=== PATIENT | male | born 1935 | race Asian ===

== ENCOUNTER 2018-10-07 14:01 | Emergency (ER) | payer MEDICARE, BC ==
[2018-10-07 14:21] VITALS: BP 178/104
--- NOTE | 2018-10-07 14:30 | UC ---
Shortness of Breath HPI - History of Current Complaint Chief Complaint: UCRespiratory Stated Complaint: SOB Time Seen by Provider: 10/07/18 14:30 - Allergy/Home Medications Allergies/Adverse Reactions: Allergies Allergy/AdvReac Type Severity Reaction Status Date / Time tamsulosin Allergy Severe Dizziness Verified 10/07/18 14:24 fenofibrate Allergy Dizziness Verified 10/07/18 14:24 PMH/Surg Hx/FS Hx/Imm Hx Other History Of: Anticoagulant Therapy - Surgical History Surgical History: Yes Surgery Procedure, Year, and Place: DETACHED RETINA SURGERY ON RIGHT EYE. RIGHT KNEE SURGERY. PROSTATE SURGERY 2016. cardiac stents 2018 - Family History Known Family History: Positive: Hypertension - Mother - Social History Alcohol Use: Occasionally Substance Use Type: None Smoking Status (MU): Never Smoked Tobacco - Immunization History Most Recent Influenza Vaccination: 2012 Most Recent Tetanus Shot: 2013 Most Recent Pneumonia Vaccination: Up to date Physical Exam Vital Signs: Initial Vital Signs Temp 98.0 F 10/07/18 14:17 Pulse 63 10/07/18 14:17 Resp 20 10/07/18 14:17 BP 178/104 10/07/18 14:17 Pulse Ox 100 10/07/18 14:17 Discharge - Discharge Plan Referrals: Faizan Villa MD [Primary Care Provider] -
--- NOTE | 2018-10-07 15:47 | UC ---
Shortness of Breath HPI - HPI Summary HPI Summary: 83-year-old male comes in with chief complaint of shortness breath. This shortness of breath this going on for months. Been worse over the last month. He did have some chest tightness associated with the shortness of breath and had a cardiac catheterization with a stent placement about 2 weeks ago at [facility]. Patient reports the chest tightness is gone at this shortness of breath remains. Shortness of breath is worse with laying down and activity. He does have some pedal edema. No fevers or chills no sputum production. - History of Current Complaint Chief Complaint: UCRespiratory Stated Complaint: SOB Time Seen by Provider: 10/07/18 14:30 - Allergy/Home Medications Allergies/Adverse Reactions: Allergies Allergy/AdvReac Type Severity Reaction Status Date / Time tamsulosin Allergy Severe Dizziness Verified 10/07/18 14:24 fenofibrate Allergy Dizziness Verified 10/07/18 14:24 Home Medications: Home Medications Furosemide [Lasix] 40 mg PO DAILY WITH MEAL 10/07/18 [History Confirmed 10/07/18 ] Ticagrelor* [Brilinta*] 90 mg PO BID 10/07/18 [History Confirmed 10/07/18] PMH/Surg Hx/FS Hx/Imm Hx Endocrine History: Diabetes Cardiovascular History: Hypertension Other Cardiovascular History: RENAL INSUFFICIENCY Other History Of: Anticoagulant Therapy - Surgical History Surgical History: Yes Surgery Procedure, Year, and Place: DETACHED RETINA SURGERY ON RIGHT EYE. RIGHT KNEE SURGERY. PROSTATE SURGERY 2016. cardiac stents 2018 - Family History Known Family History: Positive: Hypertension - Mother - Social History Alcohol Use: Occasionally Substance Use Type: None Smoking Status (MU): Never Smoked Tobacco - Immunization History Most Recent Influenza Vaccination: 2013 Most Recent Tetanus Shot: 2014 Most Recent Pneumonia Vaccination: Up to date Review of Systems All Other Systems Reviewed And Are Negative: Yes Constitutional: Positive: Negative Skin: Positive: Negative Eyes: Positive: Negative ENT: Positive: Negative Respiratory: Positive: Shortness Of Breath. Negative: Cough Cardiovascular: Negative: Chest Pain Gastrointestinal: Positive: Negative Genitourinary: Positive: Negative Motor: Positive: Negative Neurovascular: Positive: Negative Musculoskeletal: Positive: Negative Neurological: Positive: Negative Psychological: Positive: Negative Is Patient Immunocompromised?: No Physical Exam Triage Information Reviewed: Yes Appearance: Well-Appearing, No Pain Distress, Well-Nourished Vital Signs: Initial Vital Signs Temp 98.0 F 10/07/18 14:17 Pulse 63 10/07/18 14:17 Resp 20 10/07/18 14:17 BP 178/104 10/07/18 14:17 Pulse Ox 100 10/07/18 14:17 Vital Signs Reviewed: Yes Eye Exam: Normal Eyes: Positive: Conjunctiva Clear Neck exam: Normal Neck: Positive: Supple Respiratory: Positive: Lungs clear, Normal breath sounds, No respiratory distress Cardiovascular: Positive: RRR Abdomen Description: Positive: Nontender, Soft Bowel Sounds: Positive: Present Musculoskeletal: Positive: Strength Intact, ROM Intact, Other: - Trace bilateral pedal edema Neurological Exam: Normal Neurological: Positive: Alert, Muscle Tone Normal Psychological Exam: Normal Psychological: Positive: Age Appropriate Behavior Skin Exam: Normal Diagnostics - EKG Cardiac Rate: NL - AT 14:35 Cardiac Rhythm: Sinus: Normal - APPROX 65 BPM, LBBB: New Ectopy: None EKG Comparison: Other - LBBB NEW IN COMPARISON TO OUR LAST EKG OF 09/14/16 Shortness of Breath Dx - Course Course Of Treatment: Patient's EKG shows a new left bundle branch block in comparison to her last EKG of September 14, 2016. Patient has no chest pain at this time. Shortness breath is worse with laying down and activity. Congestive heart failure and pericarditis are possibilities. Chest x-ray results were discussed with the patient as were the EKG results. No CHF or other abnormality seen on chest x-ray. I discussed with the patient that I recommended he come to the emergency department for further evaluation to include blood work to evaluate for heart damage and potentially observation overnight and echocardiogram if needed. Patient declined going to the emergency department. We discussed going to [facility] emergency department and also [facility] emergency department where most of his records are. Patient declined going to the emergency department and plans to follow-up his primary care doctor tomorrow. We david blood work for CBC CMP TSH INR and BNP. I let him know that if he gets short of breath or has any chest pain or if he feels worse before he sees primary care doctor he needs to go to the emergency department. - Differential Dx/Diagnosis Provider Diagnosis: Dyspnea Discharge - Sign-Out/Discharge Documenting (check all that apply): Patient Departure All imaging exams completed and their final reports reviewed: Yes - Discharge Plan Condition: Stable Disposition: HOME-RECOMMEND TO ED Patient Education Materials: Dyspnea (ED) Referrals: Faizan Villa MD [Primary Care Provider] - Additional Instructions: FOLLOW UP WITH YOUR DOCTOR TOMORROW, 10/08/18. GO TO THE EMERGENCY DEPARTMENT FOR ANY WORSENING OF YOUR CONDITION; CHEST PAIN, SHORTNESS OF BREATH, YOU FEEL ILL OR QUESTIONS OR CONCERNS. - Billing Disposition and Condition Condition: STABLE Disposition: Home-Recommend to ED
[2018-10-07 19:04] LABS: ABS Basophils 0 10^3/ul (0-0.2); ABS Eosinophils 0.1 10^3/ul (0-0.6); ABS Lymphocytes 1.8 10^3/ul (1.0-4.8); ABS Monocytes 0.5 10^3/ul (0-0.8); ABS Neutrophils 9.1 10^3/ul (1.5-7.7); ABS Nucleated RBC 0 10^3/ul; Eosinophil % 1.1 %; Hematocrit 44 % (42-52); Hemoglobin 15.3 g/dl (14.0-18.0); Lymphocyte % 15.5 %; Mean Corpuscular HGB Conc 35 g/dl (31-36); Mean Corpuscular Hemoglobin 30 pg (27-31); Mean Corpuscular Volume 86 fL (80-94); Mean Platelet Volume 9.1 fL (7.4-10.4); Nucleated Red Blood Cells % 0.1; Platelet Count 257 10^3/ul (150-450); Red Blood Count 5.16 10^6/ul (4.00-5.40); Red Cell Distribution Width 14 % (10.5-15); White Blood Count 11.6 10^3/ul (3.5-10.8)
[2018-10-07 19:11] LABS: INR 0.9 (0.77-1.02)
[2018-10-07 19:21] LABS: EGFR Non-African American 49.9 (>60)
--- NOTE | 2018-10-08 13:05 | UC ---
- Progress Note Progress Note: PLEASE CALL PATIENT. BLOOD WORK SHOWS SLIGHTLY ELEVATED WHITE BLOOD CELLS. SLIGHTLY DECREASED KIDNEY FUNCTION. ELEVATED BNP SUGGESTING POSSIBLE HEART FAILURE. TSH IS SLIGHTLY ELEVATED SUGGESTING POSSIBLE HYPOTHYROIDISM. WOULD RECOMMEND ED EVALUATION IF PATIENT IS NOT FEELING ANY BETTER. CERTAINLY AT LEAST NEEDS PCP FOLLOW-UP FOR ABNORMAL LABS. - ELIESER WHITE MD Course/Dx - Diagnoses Provider Diagnoses: Dyspnea Discharge - Sign-Out/Discharge Documenting (check all that apply): Post-Discharge Follow Up All imaging exams completed and their final reports reviewed: Yes - Discharge Plan Condition: Stable Disposition: HOME-RECOMMEND TO ED Patient Education Materials: Dyspnea (ED) Referrals: Faizan Villa MD [Primary Care Provider] - Additional Instructions: FOLLOW UP WITH YOUR DOCTOR TOMORROW, 10/08/18. GO TO THE EMERGENCY DEPARTMENT FOR ANY WORSENING OF YOUR CONDITION; CHEST PAIN, SHORTNESS OF BREATH, YOU FEEL ILL OR QUESTIONS OR CONCERNS. - Billing Disposition and Condition Condition: STABLE Disposition: Home-Recommend to ED
== END 2018-10-07 16:34 | disposition home health service (06) ==
LOC: UCEAST 14:01
DX: R06.00 Dyspnea, unspecified (principal); Z88.8 Allergy status to other drugs, medicaments and biological substances; E11.9 Type 2 diabetes mellitus without complications; I10 Essential (primary) hypertension
CPT/HCPCS: 36415; 71046; 80053; 83880; 84443; 85025; 85610; 93005; 99211; G0463

== ENCOUNTER 2018-10-10 14:58 | Emergency (ER) | payer MEDICARE, BC ==
[2018-10-10 15:22] VITALS: BP 179/91
--- NOTE | 2018-10-10 16:11 | UC ---
Shortness of Breath HPI - HPI Summary HPI Summary: 83-year-old male comes to clinic today with a chief complaint of shortness of breath. His breath been going on for quite a long time perhaps even months. He 's had a cardiac some tenting in the last few weeks with the hope that that would help shortness of breath and has not. Shortness breath is worse when he is laying down or sitting down. he reports some rhinorrhea which is yellow. Seen here on October 07, 2018. Lab work including a CBC CMP TSH and BNP were done at that time. Also an EKG and chest x-ray was done then. Chest x-ray was NAD EKG had no changes from prior EKGs. Lab work showed a white cell count slightly elevated at 11.6 thousand. Red and slightly elevated at 1.36. BNP 737. A TSH of 7.63. This information was communicated with the patient after his last visit. The patient has seen his primary care doctor in the meantime. His primary care doctor started him on additional diuretic. And plans to have blood work drawn tomorrow October 11, 2018 and following up with him next week in the first week of October 2018. Patient has no complaint of chest pain. He's had some pedal edema. No calf pain or unilateral calf swelling. No fevers or chills. - History of Current Complaint Chief Complaint: UCCardiac Stated Complaint: SHORTNESS OF BREATH Time Seen by Provider: 10/10/18 15:12 - Allergy/Home Medications Allergies/Adverse Reactions: Allergies Allergy/AdvReac Type Severity Reaction Status Date / Time tamsulosin Allergy Severe Dizziness Verified 10/10/18 15:23 cyclobenzaprine Allergy See Comment Verified 10/10/18 15:39 fenofibrate Allergy Dizziness Verified 10/10/18 15:23 naproxen Allergy See Comment Verified 10/10/18 15:39 Home Medications: Home Medications Aspirin [Adult Aspirin Regimen] 81 mg PO DAILY 10/10/18 [History Confirmed 10/10] Fexofenadine (NF) [Kiley 180 (NF)] 180 mg PO DAILY 10/10/18 [History Confirmed 10/10/18] Multivitamin [Multivitamins] 1 cap PO DAILY 10/10/18 [History Confirmed 10/10/18 ] PMH/Surg Hx/FS Hx/Imm Hx Cardiovascular History: Cardiac Disease, Hypertension, Congestive Heart Failure Other History Of: Anticoagulant Therapy - Surgical History Surgical History: Yes Surgery Procedure, Year, and Place: DETACHED RETINA SURGERY ON RIGHT EYE. RIGHT KNEE SURGERY. PROSTATE SURGERY 2016. cardiac stents 2018 - Family History Known Family History: Positive: Hypertension - Mother - Social History Alcohol Use: Occasionally Substance Use Type: None Smoking Status (MU): Never Smoked Tobacco - Immunization History Most Recent Influenza Vaccination: 2012 Most Recent Tetanus Shot: 2013 Most Recent Pneumonia Vaccination: Up to date Review of Systems All Other Systems Reviewed And Are Negative: Yes Constitutional: Positive: Negative Skin: Positive: Negative Eyes: Positive: Negative ENT: Positive: Nasal Discharge, Sinus Congestion Respiratory: Positive: Shortness Of Breath Cardiovascular: Positive: Negative Gastrointestinal: Positive: Negative Genitourinary: Positive: Negative. Negative: Dysuria, Frequency, Urgency Motor: Positive: Negative Neurovascular: Positive: Negative Musculoskeletal: Positive: Edema Neurological: Positive: Negative Psychological: Positive: Negative Is Patient Immunocompromised?: No Physical Exam Triage Information Reviewed: Yes Appearance: Well-Appearing, No Pain Distress, Well-Nourished Vital Signs: Initial Vital Signs Temp 97.9 F 10/10/18 15:19 Pulse 69 10/10/18 15:19 Resp 18 10/10/18 15:19 BP 179/91 10/10/18 15:19 Pulse Ox 100 10/10/18 15:19 Eye Exam: Normal Eyes: Positive: Conjunctiva Clear ENT Exam: Normal ENT: Positive: Pharynx normal Neck exam: Normal Neck: Positive: Supple Respiratory: Positive: Lungs clear, Normal breath sounds, No respiratory distress Cardiovascular: Positive: RRR Musculoskeletal Exam: Normal Musculoskeletal: Positive: Strength Intact, ROM Intact, Edema @ - TRACE B/L, Other: - NO CALF TENDERNESS Neurological Exam: Normal Neurological: Positive: Alert, Muscle Tone Normal Psychological Exam: Normal Psychological: Positive: Normal Response To Family, Age Appropriate Behavior Skin Exam: Normal Shortness of Breath Dx - Differential Dx/Diagnosis Provider Diagnosis: Dyspnea, Sinusitis Discharge - Sign-Out/Discharge Documenting (check all that apply): Patient Departure All imaging exams completed and their final reports reviewed: No Studies - Discharge Plan Condition: Stable Disposition: HOME Prescriptions: Amoxicillin/Clavulanate TAB* [Augmentin TAB 875*] 875 mg PO BID #20 tab Fluticasone NASAL SPRAY 50MCG* [Flonase NASAL SPRAY 50MCG*] 2 spray BOTH NARES DAILY #1 btl Patient Education Materials: Dyspnea (ED), Sinusitis (ED) Referrals: Faizan Villa MD [Primary Care Provider] - Additional Instructions: FOLLOW UP WITH YOUR DOCTOR SCHEDULED. GO TO THE EMERGENCY DEPARTMENT FOR ANY WORSENING OF YOUR CONDITION: CHEST PAIN, SHORTNESS OF BREATH, YOU FEEL ILL OR QUESTIONS OR CONCERNS. - Billing Disposition and Condition Condition: STABLE Disposition: Home
== END 2018-10-10 16:40 | disposition home or self-care (01) ==
LOC: UCEAST 14:58
DX: R06.00 Dyspnea, unspecified (principal); J32.9 Chronic sinusitis, unspecified; R00.1 Bradycardia, unspecified; I25.10 Atherosclerotic heart disease of native coronary artery without angina pectoris; I11.0 Hypertensive heart disease with heart failure; Z95.5 Presence of coronary angioplasty implant and graft; Z79.82 Long term (current) use of aspirin; Z88.6 Allergy status to analgesic agent; Z88.8 Allergy status to other drugs, medicaments and biological substances
CPT/HCPCS: 93005; 99212; G0463

== ENCOUNTER 2019-04-20 23:46 | Observation (INO) | payer MEDICARE, BC ==
[2019-04-21] MEDS ORDERED: Ondansetron INJ* 2 MG/ML VIAL IV ONE (00:11)
[2019-04-21] MEDS ORDERED: Morphine 4 MG/ML VIAL (1 ml) 4 MG/ML VIAL IV ONE ×2 (00:11→00:27)
--- NOTE | 2019-04-21 00:11 | ED ---
HPI Chest Pain - HPI Summary HPI Summary: Patient is a 83 y/o M presenting to ED via EMS with complaints of substernal chest pain. Chest pain onset around two hours ago. Pain is described as a pressure. He denies any other Sx, denies SOB. He reports no radiation of pain. He reports a similar episode two days ago that resolved after taking nitro. Today, patient took nitro with no relief in Sx. PMHx of diabetes, CAD, HLD, HTN , sleep apnea, Crohns, GERD. PSHx of cardiac stents 2018. FMHx of HTN. Occasional alcohol usage, never smoked tobacco, and no substance usage is reported. Patient takes Plavix, 75 mg, and ASA. On triage, pain is rated 7/10. Nothing is noted to aggravate/alleviate Sx. Home medications and allergies are reviewed. - History of Current Complaint Hx Obtained From: Patient Onset/Duration: Started Hours Ago - two hours ago today., Still Present Timing: Constant, Lasting Hours - two hours ago today. Current Severity: Severe Pain Intensity: 7 Pain Scale Used: 0-10 Numeric - 7/10 Chest Pain Radiates: No Character: Pressure/Squeezing Aggravating Factor(s): Nothing Alleviating Factor(s): Nothing Associated Signs and Symptoms: Positive: Chest Pain. Negative: Shortness of Breath - Additional Pertinent History Primary Care Physician: [id number] - Allergy/Home Medications Allergies/Adverse Reactions: Allergies Allergy/AdvReac Type Severity Reaction Status Date / Time tamsulosin Allergy Severe Dizziness Verified 04/21/19 00:59 cyclobenzaprine Allergy See Comment Verified 04/21/19 00:59 fenofibrate Allergy Dizziness Verified 04/21/19 00:59 naproxen Allergy See Comment Verified 04/21/19 00:59 Home Medications: Home Medications Amlodipine Besylate 10 mg PO DAILY 04/21/19 [History Confirmed 04/21/19] Isosorbide Mononitrate ER TAB* [Imdur ER TAB*] 60 mg PO DAILY 04/21/19 [History Confirmed 04/21/19] PMH/Surg Hx/FS Hx/Imm Hx Endocrine/Hematology History: Reports: Hx Anticoagulant Therapy, Hx Diabetes - TYPE 2 Denies: Hx Thyroid Disease Cardiovascular History: Reports: Hx Coronary Artery Disease, Hx Hypercholesterolemia, Hx Hypertension Respiratory History: Reports: Hx Sleep Apnea - new CPAP user, still struggling w /compliance Denies: Hx Asthma, Hx Chronic Obstructive Pulmonary Disease (COPD) GI History: Reports: Hx Crohn's Disease, Hx Gastroesophageal Reflux Disease, Other GI Disorders - colon polyps, internal hemorrhoid Denies: Hx Ulcer History: Reports: Hx Benign Prostatic Hyperplasia, Other Problems/ Disorders - PROSTATE SURGERY 04/2016 Musculoskeletal History: Reports: Hx Arthritis, Other Musculoskeletal History - bilateral knee degenerative joint disease Sensory History: Reports: Hx Cataracts - SURGERY left, Hx Contacts or Glasses, Hx Hearing Aid - BILAT Opthamlomology History: Reports: Hx Cataracts - SURGERY left, Hx Contacts or Glasses Neurological History: Reports: Hx Migraine Denies: Hx CVA, Other Neuro Impairments/Disorders - Surgical History Surgery Procedure, Year, and Place: DETACHED RETINA SURGERY ON RIGHT EYE. RIGHT KNEE SURGERY. PROSTATE SURGERY 2016. cardiac stents 2017 Hx Anesthesia Reactions: No Infectious Disease History: Denies: Hx Hepatitis, Hx Human Immunodeficiency Virus (HIV), Traveled Outside the [place] in Last 30 Days - Family History Known Family History: Positive: Hypertension - Mother - Social History Alcohol Use: Occasionally Hx Substance Use: No Substance Use Type: Reports: None Hx Tobacco Use: No Smoking Status (MU): Never Smoked Tobacco Review of Systems Negative: Fever - on vitals, temp is 97.5 F Positive: Chest Pain Negative: Shortness Of Breath All Other Systems Reviewed And Are Negative: Yes Physical Exam - Summary Physical Exam Summary: VITAL SIGNS: Reviewed. GENERAL: Patient is a well-developed and nourished male who is lying in the stretcher. His skin appears ashy in color. HEAD AND FACE: No signs of trauma. No ecchymosis, hematomas or skull depressions. No sinus tenderness. EYES: PERRLA, EOMI x 2, No injected conjunctiva, no nystagmus. EARS: Hearing grossly intact. Ear canals and tympanic membranes are within normal limits. MOUTH: Oropharynx within normal limits. NECK: Supple, trachea is midline, no adenopathy, no JVD, no carotid bruit, no c- spine tenderness, neck with full ROM CHEST: Symmetric, no tenderness at palpation LUNGS: Rales bilaterally are noted. No wheezing or crackles. CVS: Regular rate and rhythm, S1 and S2 present, no murmurs or gallops appreciated. ABDOMEN: Soft, non-tender. No signs of distention. No rebound no guarding, and no masses palpated. Bowel sounds are normal. EXTREMITIES: FROM in all major joints, no cyanosis or clubbing. 1+ pitting edema bilateral is noted. NEURO: Alert and oriented x 3. No acute neurological deficits. Speech is normal and follows commands. SKIN: Dry and warm Triage Information Reviewed: Yes Vital Signs On Initial Exam: Initial Vitals Temp Pulse Resp BP Pulse Ox 97.5 F 127 27 167/106 94 04/21/19 00:11 04/21/19 00:11 04/21/19 00:11 04/21/19 00:11 04/21/19 00:11 Vital Signs Reviewed: Yes Diagnostics - Laboratory Result Diagrams: 04/21/19 00:21 04/21/19 00:21 Lab Statement: Any lab studies that have been ordered have been reviewed, and results considered in the medical decision making process. - Radiology CXR Radiology Interpretation Completed By: ED Physician Summary of Radiographic Findings: Bilateral interstitial infiltrate consistent with CHF, pending official report. - EKG 2358 Cardiac Rate: Other Rate - afib with rate of 129 BPM EKG Rhythm: Atrial Fibrillation EKG Comparison: Other - upon reviewing EKG done on 10/10/18, LBBB appears to be old. Summary of EKG Findings: EKG showed afib with rate of 129 BPM and LBBB. Upon reviewing EKG done on 10/10/18, LBBB appears to be old. 0028 Cardiac Rate: NL - rate of 85 BPM EKG Rhythm: Sinus Rhythm Summary of EKG Findings: Second EKG showed sinus rhythm with rate of 85 BPM, LBBB. Re-Evaluation - Re-Evaluation First Eval Re-Evaluation Time: 00:27 Change: Unchanged Comment: Patient continues to have pain, second round of morphine ordered with Lasix. Second Eval Re-Evaluation Time: 00:49 Change: Unchanged Comment: Patient continues to have pain, heparin to be given. Third Eval Re-Evaluation Time: 00:53 Change: Unchanged Comment: Aware of trop at this time. Fourth Eval Re-Evaluation Time: 00:59 Change: Unchanged Comment: Nitro past was given to patient. Fifth Eval Re-Evaluation Time: 01:25 Change: Unchanged Comment: Patient reports minimal relief in Sx, third round of morphine to be given. Chest Pain Course/Dx - Course Course Of Treatment: Patient is a 83 y/o M presenting to ED via EMS with complaints of substernal chest pain. Chest pain onset around two hours ago. Pain is described as a pressure. He denies any other Sx, denies SOB. He reports no radiation of pain. He reports a similar episode two days ago that resolved after taking nitro. Today, patient took nitro with no relief in Sx. PMHx of diabetes, CAD, HLD, HTN, sleep apnea, Crohns, GERD. PSHx of cardiac stents 2018. FMHx of HTN. Occasional alcohol usage, never smoked tobacco, and no substance usage is reported. Patient takes Plavix, 75 mg, and ASA. On physical exam, patient's skin is noted to appear ashy is color. Rales bilaterally and 1+ pitting BLE edema are noted. EKG showed afib with rate of 129 BPM and LBBB. Upon reviewing EKG done on 10/10/18, LBBB appears to be old. CXR showed bilateral interstitial infiltrate consistent with CHF. 0024 - Patient's case was discussed with Dr. Villalobos. Dr. Villalobos will call back after reviewing patient 's EKG. During ED course, patient received Zofran 8 mg IV, morphine 4 mg IV x2 , Lopressor 5 mg IV, Lasix 40 mg IV. Second EKG showed sinus rhythm with rate of 85 BPM, LBBB. Patient was started on Heparin 4000 units IV and Heparin drip 56851 units, 1000 mls/hr. Patient still continued to have chest pressure. 0041 - Dr. Villalobos called back. He states that the patient does not meet criteria for STEMI and he does not believe that the patient needs to go to the cardiac photo lab specialist at this time. 0045 - Patient's case was discussed with Dr. Eduardo. He will come to evaluate patient. TROP WAS 0.43. Other labs included WBC 20.1, RBC 5.51, Absolute neuts 17, chloride 100, anion gap 14, creatinine 1.58, glucose 271, total bilirubin 1.10. Patient was given additional 2 mg Morphine IV and 2 inch nitro paste TOPICAL. He also received second Lopressor 5 mg IV, and Lasix 20 mg IV SLOW PU. 0103 - Dr. Eduardo arrived in ED, patient's case was discussed. He will evaluate the patient. 0145 - Dr. Eduardo has discussed the patient's case with Dr. Downs, who has accepted the patient for admission. - Diagnoses Provider Diagnoses: Chest pain, ACS (acute coronary syndrome) - Provider Notifications Discussed Care Of Patient With: Shirin Villalobos Time Discussed With Above Provider: 00:24 Instructed by Provider To: Other - 0024 - Patient's case was discussed with Dr. Villalobos. Dr. Villalobos will call back after reviewing patient's EKG. 0041 - Dr. Villalobos called back. He states that the patient does not meet criteria for STEMI and he does not believe that the patient needs to go to the cardiac photo lab specialist at this time. 0045 - Patient's case was discussed with Dr. Eduardo. He will come to evaluate patient. 0103 - Dr. Eduardo arrived in ED, patient's case was discussed. He will evaluate the patient. - Critical Care Time Critical Care Time: 30-74 min - 45 CCT Discharge - Sign-Out/Discharge Documenting (check all that apply): Patient Departure - admit All imaging exams completed and their final reports reviewed: Yes Patient Received Moderate/Deep Sedation with Procedure: No - Discharge Plan Condition: Fair Disposition: ADMITTED TO [facility] - Attestation Statements Document Initiated by Scribe: Yes Documenting Scribe: BELLA RENEE Provider For Whom Scribe is Documenting (Include Credential): HAMLET MEJIA MD Scribe Attestation: BELLA Ma, scribed for HAMLET MEJIA MD on 04/21/19 at 0219. Status of Scribe Document: Ready
[2019-04-21] MEDS ORDERED: Aspirin 81 mg CHEW TAB* 81 MG TAB.CHEW PO ONE (00:12)
[2019-04-21] MEDS: Metoprolol Tartrate IV* 1 MG/ML 5 ML VIAL IV ONE ×2 (00:25→01:13)
[2019-04-21] MEDS ORDERED: Morphine 4 MG/ML VIAL (1 ml) 4 MG/ML VIAL ONE (00:28)
[2019-04-21] MEDS ORDERED: Furosemide IV* 10 MG/ML VIAL (40 MG) IV SLOW PU ONE (00:29)
[2019-04-21] MEDS ORDERED: Furosemide IV* 10 MG/ML VIAL (40 MG) ONE (00:30)
[2019-04-21 00:31] LABS: ABS Basophils 0.1 10^3/ul (0-0.2); ABS Eosinophils 0.1 10^3/ul (0-0.6); ABS Lymphocytes 2.2 10^3/ul (1.0-4.8); ABS Monocytes 0.7 10^3/ul (0-0.8); Eosinophil % 0.3 %; Hematocrit 49 % (42-52); Hemoglobin 16.3 g/dL (14.0-18.0); Lymphocyte % 10.9 %; Mean Corpuscular HGB Conc 33 g/dL (31-36); Mean Corpuscular Hemoglobin 30 pg (27-31); Mean Corpuscular Volume 88 fL (80-94); Mean Platelet Volume 8.8 fL (7.4-10.4); Nucleated Red Blood Cells % 0.1; Platelet Count 325 10^3/uL (150-450); Red Blood Count 5.51 10^6 /uL (4.18-5.48); Red Cell Distribution Width 14 % (10-15); White Blood Count 20.1 10^3/uL (3.5-10.8)
[2019-04-21] MEDS ORDERED: Heparin for STEMI(*) 5,000 UNITS/ML 1 ML VIAL IV ONE ×2 (00:36→00:39)
[2019-04-21 00:40] LABS: Activated Partial Thrombo Time 34.8 seconds (26.0-38.0); INR 0.98 (0.82-1.09)
[2019-04-21] MEDS ORDERED: Heparin DRIP 25,000 UNITS(*) 25,000 UNITS/500 ML BAG ONE (00:40)
[2019-04-21] MEDS: Heparin DRIP 25,000 UNITS(*) 25,000 UNITS/500 ML BAG IV SCH ×2 (00:47→23:40)
[2019-04-21 00:52] LABS: ALT 16 U/L (7-52); AST 24 U/L (13-39); Albumin 4.1 g/dL (3.2-5.2); Albumin/Globulin Ratio 1.3 (1-3); Alkaline Phosphatase 82 U/L (34-104); Anion Gap 14 mmol/L (2-11); BUN/Creatinine Ratio 14.6 (8-20); Blood Urea Nitrogen 23 mg/dL (6-24); CO2 Carbon Dioxide 22 mmol/L (22-32); Calcium 9.5 mg/dL (8.6-10.3); Chloride 100 mmol/L (101-111); EGFR African American 50.8 (>60); Globulin 3.1 g/dL (2-4); Glucose 271 mg/dL (70-100); Magnesium 1.9 mg/dL (1.9-2.7); Potassium 3.8 mmol/L (3.5-5.0); Sodium 136 mmol/L (135-145); Total Protein 7.2 g/dL (6.4-8.9)
[2019-04-21 00:53] LABS: Troponin I 0.43 ng/mL (<0.04)
[2019-04-21] MEDS ORDERED: Nitro 2% OINT* (Nitroglycerin) 1 INCH/PAK PAK TOPICAL ONE (00:56)
[2019-04-21] MEDS: Morphine 4 MG/ML VIAL (1 ml) 4 MG/ML VIAL IV ONE ×2 (00:56→01:25)
[2019-04-21] MEDS ORDERED: Nitro 2% OINT* (Nitroglycerin) 1 INCH/PAK PAK ONE (00:58)
[2019-04-21] MEDS ORDERED: Heparin VIAL(*) 5000 UNITS/ML VIAL (FIVE THOUSAND) IV SCH (01:00)
[2019-04-21] MEDS ORDERED: Metoprolol Tartrate IV* 1 MG/ML 5 ML VIAL ONE (01:06)
[2019-04-21] MEDS ORDERED: nitroGLYCERIN DRIP* 25,000 MCG/250 ML BTL ONE ×2 (01:10→07:49)
[2019-04-21] MEDS ORDERED: nitroGLYCERIN DRIP* 25,000 MCG/250 ML BTL IV ONE (01:20)
[2019-04-21] MEDS ORDERED: Metoprolol Tartrate IV* 1 MG/ML 5 ML VIAL IV ONE (01:21)
[2019-04-21] MEDS ORDERED: diPHENhydraMINE PO* 25 MG PO PRN (01:35)
[2019-04-21] MEDS ORDERED: Diazepam TAB(*) 5 MG PO PRN (01:35)
[2019-04-21] MEDS ORDERED: Acetaminophen TAB* 325 MG PO PRN (01:36)
[2019-04-21] MEDS ORDERED: Furosemide IV* 10 MG/ML 2 ML VIAL (20 MG) IV SLOW PU ONE (01:40)
[2019-04-21] MEDS ORDERED: NS 0.9% 1000 ML** 1,000 ML IV SCH (01:45)
[2019-04-21 02:31] LABS: Cholesterol 112 mg/dL; HDL Cholesterol 34.3 mg/dL; LDL Cholesterol 33 mg/dL; Triglycerides 224 mg/dL
--- NOTE | 2019-04-21 04:21 | CONS ---
CC: Dr. Low Mendoza, [facility] * CARDIOLOGY CONSULTATION REPORT: DATE OF CONSULT: 04/21/19 INDICATION FOR CONSULT: Coronary artery disease, NSTEMI. HISTORY OF PRESENT ILLNESS: The patient is an 83-year-old gentleman with a history of coronary artery disease, history of stenting to his left circumflex artery 6 months ago done at [facility], at that time he had a 3.5 x 14 mm stent placed to his left circumflex artery. The patient has been having increasing angina for the past week or so. He did see Dr. Mendoza earlier last week. At that time, his isosorbide was increased from 30 to 60 mg a day. The patient states that he was having more chest pain over the weekend. He took a couple of nitroglycerin on Sunday with relief of his symptoms. Sunday night, he started having more of his discomfort. He describes it as a pressure in the center of his chest. He rated it about 8/10. He took a couple of nitroglycerin without any relief and came to the emergency room. In the emergency room, he presented with EKG of irregular rhythm, left bundle branch block consistent with atrial fibrillation. The patient's baseline EKG demonstrates normal sinus rhythm with a left bundle branch block. The patient's chest x-ray was consistent with pulmonary edema. The patient was treated with morphine, beta blockers, and IV Lasix. After about an hour or so, his pain had only decreased slightly and I was called to the emergency room. On arrival, the patient's heart rate was 110 beats per minute, it was in sinus rhythm; his blood pressure was 180/113. I have given the patient Lopressor 5 mg IV, started him on nitroglycerin drip, gave him more morphine, and currently the patient's pain is 3/10. He is slightly sleepy from the narcotics. His pain appears to be under significantly better control. His blood pressure now is 152/80. PAST MEDICAL HISTORY: Significant for coronary artery disease, glaucoma, diabetes, and hypertension. PAST SURGICAL HISTORY: Stent to his left circumflex artery 6 months ago, history of left knee replacement. OUTPATIENT MEDICATIONS: 1. Metoprolol succinate 100 mg a day. 2. Timolol eyedrops. 3. Metformin 1000 mg b.i.d. 4. Clonidine 0.3 mg b.i.d. 5. Xalatan eyedrops as directed. 6. Lipitor 20 mg a day. 7. Plavix 75 mg a day. 8. Lasix 40 mg a day. 9. Aspirin 81 mg a day. 10. Kiley 180 mg a day. 11. Flonase nasal spray. 12. Isosorbide 60 mg a day. 13. Amlodipine 10 mg a day. ALLERGIES: To TAMSULOSIN, CYCLOBENZAPRINE, FENOFIBRATE, and NAPROSYN. FAMILY HISTORY: No family history of early coronary artery disease. SOCIAL HISTORY: He is . He is currently retired. He denies any tobacco or alcohol use. He does exercise on a regular basis. REVIEW OF SYSTEMS: Negative for fever and chills. Negative for changes in bowel or bladder habits. Negative for changes in weight. Other 12-point review is unremarkable. PHYSICAL EXAM: Height is 5 feet 8 inches, weight is 214 pounds. Blood pressure 133/86, heart rate is 68, respiratory rate is 24, oxygen saturation 91% , temperature 97.5. Sclerae are anicteric. Oropharynx is pink without erythema. Carotids are 2+ without bruits. JVD is normal. Thyroid is normal. Cardiac Exam: S1, S2 without any murmurs, rubs, or gallops. PMI is normal. Lungs have mild rales at the bases. There is no dullness to percussion. Abdomen is soft, nontender, and nondistended with normoactive bowel sounds. Extremities showed no edema. He has 2+ pulses throughout. The patient is awake , alert, and oriented. He moves all 4 extremities equally. DIAGNOSTIC STUDIES/LAB DATA: White count 20.1, hemoglobin 16, hematocrit 49, platelet count 325. Chemistries within normal limits. BUN 23, creatinine 1.5 which is slightly up from his baseline. INR is normal. EKG on arrival showed irregular rhythm, left bundle branch block. A second EKG shows a normal sinus rhythm with a left bundle branch block. Chest x-ray is consistent with pulmonary edema. IMPRESSION: This is an 83-year-old gentleman with a history of coronary artery disease, who came to the emergency room because of chest pain, unrelieved by 3 sublingual nitroglycerin. In the emergency room, the patient was treated with nitroglycerin, heparin, beta mary, and morphine. Ultimately, the patient's chest pain down from an 8/10 down to 3/10. At this point, the patient will be admitted to the hospital. He will continue on his medications. The patient will likely go to the cardiac yard laborer early in the morning. If his pain starts to return, then we will proceed to the cardiac yard laborer at earliest date. [id number]/[facility] #: [id number] MTDAltaf
--- NOTE | 2019-04-21 04:47 | HP ---
CC: Dr. Villa; Dr. Mendoza * HISTORY AND PHYSICAL: DATE OF ADMISSION: 04/21/19 TIME OF EVALUATION: 0200 PRIMARY CARE PHYSICIAN: Dr. Villa. CLOTH SHEARER: Dr. Mendoza. CHIEF COMPLAINT: Chest pain. HISTORY OF PRESENT ILLNESS: This is an 83-year-old male with a past medical history of CAD, recent stent placement in September 2018, who presents to the emergency room with persistent chest pain. The patient states, for the past month, he has had on and off again chest pain. He saw his director regulatory agency on , 04/17/19. At that time, they increased his isosorbide from 30 mg to 60 mg and stated if it did not improve his chest pain to come back and that he will go back for another catheterization. The patient was initially put on Brilinta after getting his stent placed back in September, but he could not tolerated because he developed shortness of breath with it, so he was switched over to Plavix. The patient was given a prescription for nitro back in 2016 and over the past month has started using it and needed a refill. He has used it several times. Four days ago he had a similar episode to his evening, during the night, where he took 4 nitro and by morning his chest pain had resolved. Again, similar episode happened this evening when he was walking to bed, he developed exertional chest pain and he was told with doubling the isosorbide that he should not need to take any nitro and he took a total of 3 nitro and still no improvement in his chest pain. He decided to call EMS for further evaluation. The patient has had issues with exertional chest pain. He cannot do a lot of things that he used to be able to do such as golfing, fishing , and being more active. He denied any associated shortness of breath. No nausea, no diaphoresis. He has had a mild dry cough. No issues with his bowel or bladder and no abdominal pain. Currently, he is chest pain free. In the emergency room, Dr. Chacon contacted Interventional Cardiology, who did not feel that this was an NSTEMI, and Dr. John Eduardo was then contacted, who came in to evaluate the patient. The patient at that point was started on a heparin drip, a nitro drip, given morphine, Lopressor, and 40 mg of Lasix, and referred to the hospitalist service for further evaluation. PAST MEDICAL HISTORY: 1. Diabetes. 2. History of CKD, stage II. 3. Hypertension. 4 Hyperlipidemia. 5. Allergic rhinitis. 6. BPH. 7. History of CAD, status post PCI x1, September [address] Mendoza. 8. History of spinal stenosis. MEDICATIONS: 1. Metformin 1000 mg p.o. b.i.d. 2. Clonidine 0.3 mg p.o. b.i.d. 3. Timolol 1 drop to both eyes daily. 4. Multivitamin daily. 5. Metoprolol succinate 100 mg p.o. daily. 6. Xalatan 0.05% 1 drop to both eyes in the evening. 7. Isosorbide ER 60 mg p.o. daily. 8. Lasix 40 mg daily with meal when patient has gained weight, as needed. 9. Flonase 2 sprays to both nares daily. 10. Kiley 180 mg daily. 11. Plavix 75 mg daily. 12. Atorvastatin 20 mg daily. 13. Aspirin 81 mg daily. 14. Amlodipine 10 mg daily. ALLERGIES: TAMSULOSIN, CYCLOBENZAPRINE, FENOFIBRATE, NAPROXEN. FAMILY HISTORY: Reviewed and noncontributory. SOCIAL HISTORY: The patient lives at home with his who is his healthcare proxy. He is independent of ADLs. No tobacco use. Minimal alcohol use. Code status is full code. Home phone number is [phone]. REVIEW OF SYSTEMS: A 14-point review of systems is as mentioned in the HPI, otherwise negative. Of note, the patient denies any changes in his weight. Denies any lower extremity swelling. PHYSICAL EXAMINATION GENERAL: In no acute distress, resting comfortably, with his at the bedside. VITAL SIGNS: Temp is 97.5, pulse rate is 82, respiratory rate is 19, oxygen saturation is 91% on Oxymask, blood pressure 129/78. HEENT: Head is normocephalic. Pupils are equal and reactive. Oropharynx: Mucous membranes moist. NECK: Supple. No lymphadenopathy. RESPIRATORY: Bibasilar rales. No increased work of breathing. CARDIAC: Irregularly irregular rate and rhythm. Soft systolic murmur heard throughout. ABDOMEN: Soft, nontender, nondistended. EXTREMITIES: Trace pretibial edema. NEUROLOGIC: Alert and oriented x3. No gross focal neurologic deficits. DIAGNOSTIC STUDIES/LAB DATA: White count is 20, hemoglobin 16.3, hematocrit 49 , platelets 325. INR is 0.98. Sodium 136, potassium 3.8, chloride 100, bicarb 22, anion gap 14, BUN 23, creatinine 1.58, mag 1.9, total bili 1.1. Trop is 0.43. Radiographic Data: Initially on arrival, the patient with a left bundle branch block with rate of 129. Slow down after Lopressor shows sinus rhythm with rate of 85. History of left bundle in the past. Chest x-ray: Mild pulmonary edema. ASSESSMENT: This is an 83-year-old male with a past medical history of recent coronary artery disease and stent placement in September, hypertension, hyperlipidemia, and diabetes, who presents to the emergency room with chest pain , found to have an elevated troponin. 1. Chest pain: Assessment: The patient's history and physical are consistent with an NSTEMI. His pain has now resolved with nitro drip and morphine and Lopressor. The patient is also on a heparin drip. He was evaluated in the emergency room with Dr. Eduardo. Plan will admit to the intensive care unit. Continue heparin drip and nitro drip , Lopressor as needed, and the patient is n.p.o. for director of labor and delivery in the morning. We will continue to trend his troponin. We will add on lipid panel and hemoglobin A1c. Continue his aspirin and Plavix. Chronic medical problems: Mild bump in his creatinine. I suspect this is related in the setting of his NSTEMI. We will repeat his labs and renally dose his medications. Leukocytosis: Suspect in the setting of an NSTEMI. We will repeat his labs. No findings to suggest an infectious etiology. Patient's amlodipine, his Lasix , and his isosorbide and metformin are on hold. 4. FEN: N.p.o. 5. DVT prophylaxis: The patient scores high risk. He is on heparin drip. 6. Code status: Discussed this at length. The patient wishes to be a full code. PATIENT TIME: Greater than 45 minutes were spent doing the history and physical , more than half of that time was in direct patient contact, critical care time. [id number]/[facility] #: [id number] [facility]
[2019-04-21 05:00] LABS: Urine Appearance Clear; Urine Bacteria Absent (Absent); Urine Bilirubin Negative (Negative); Urine Blood Negative (Negative); Urine Color Yellow; Urine Glucose Negative (Negative); Urine Ketones Negative (Negative); Urine Nitrite Negative (Negative); Urine Protein 2+(100 mg/dL) (Negative); Urine Red Blood Cell Absent (Absent); Urine Specific Gravity 1.009 (1.010-1.030); Urine Urobilinogen Negative (Negative); Urine White Blood Cell Absent (Absent)
--- NOTE | 2019-04-21 06:18 | PN ---
Progress Note - Progress Note Date of Service: 04/21/19 Note: Patient with urinary retention >600 ml on bladder scan. Vernon catheter ordered
[2019-04-21 06:56] LABS: Troponin I 36.6 ng/mL (<0.04)
[2019-04-21] MEDS: Insulin REGULAR(*) 1 UNITS UNIT SUBCUT SCH ×3 (07:16→18:39)
[2019-04-21] MEDS: Metoprolol Succinate XL TAB* 100 MG PO SCH (07:37)
[2019-04-21] MEDS: Aspirin EC TAB* 81 MG TAB.EC PO SCH (07:38)
[2019-04-21] MEDS: Timolol 0.5% OPTH.SOL* BTL BOTH EYES SCH (07:39)
[2019-04-21] MEDS ORDERED: fentaNYL* 50 MCG/ML 2 ML VIAL (100 MCG VIAL) ONE (07:48)
[2019-04-21] MEDS ORDERED: Heparin(*) 1000 UNIT/ML 10 ML VIAL CATH LAB IV ONE (07:48)
[2019-04-21] MEDS ORDERED: Midazolam* 1 MG/ML 5 ML VIAL (5 MG) ONE (07:48)
[2019-04-21] MEDS ORDERED: VERAPAMIL 2.5 MG/ML 2 ML VIAL ** 5 mg/2 ml ONE (07:48)
[2019-04-21] MEDS ORDERED: Lidocaine 1% INJ* 10 MG/ML 30 ML SDV ONE (07:49)
[2019-04-21] MEDS ORDERED: Iodixanol 320 (CONTRAST) 100 ML SDV ONE (07:49)
[2019-04-21] MEDS ORDERED: Heparin 2 UNITS/ML IVPREMIX* 3,000 UNIT/1,500 ML BAG IV ONE (07:52)
[2019-04-21] MEDS ORDERED: cloNIDine TAB* 0.1 MG PO SCH (09:00)
[2019-04-21] MEDS ORDERED: Clopidogrel TAB* 75 MG PO SCH (09:00)
[2019-04-21] MEDS ORDERED: Atropine SYRINGE* 0.1 MG/ML 10 ML SYRINGE (1 MG) ONE (10:14)
--- NOTE | 2019-04-21 13:26 | ECHO ---
*[facility]* [place] [address] Fax #: [phone] Transthoracic Echocardiogram Patient: Vivian, Height: 68 in / Nolan Xiong 172.7 cm : 1935 Weight: 213.6 lb / Study Date: 04/21/2019 97.1 kg Age: 83 BP: 122 / 80 Gender: M BMI/BSA: 32.5 kg/m^2 HR: 74 bpm / 2.1 m^2 *Merchant Mariner: * Stacy Siegel RD *Referring Physician: * John Eduardo MD *Reading Physician: * John Eduardo MD Indications: Myocardial Infarction (new). History: Coronary artery disease. Functional status: Renal failure. Risk factors: Hypertension. Diabetes mellitus. Hyperlipidemia. Labs, prior tests, procedures, and surgery: Catheterization (September 2018). The study demonstrated coronary artery disease. There was a stenosis which was treated with a stent. Conclusions Summary: 1. Left ventricle: There is moderate concentric hypertrophy. Systolic function is mildly reduced by visual assessment. The estimated ejection fraction is 40-45%. Hypokinesis of the basal-midinferolateral myocardium. Hypokinesis of the anterolateral myocardium. 2. Right ventricle: Systolic function is low normal. 3. Mitral valve: There is moderate central regurgitation. 4. Aortic valve: There is no evidence of stenosis. 5. Tricuspid valve: There is trace to mild regurgitation. 6. Compared with study of 09/15/16, the Lateral hypokinesis is new the Degree of mitral regurgitation is worse. Study data: Transthoracic echocardiogram. Procedure: Transthoracic echocardiography was performed. Image quality was fair. Complete 2D, spectral Doppler, and color flow Doppler. Location: ICU Patient status: Inpatient. Patient room number: ICU-3. Rhythm: Normal sinus rhythm. Findings Left ventricle: The cavity size is normal. There is moderate concentric hypertrophy. Systolic function is mildly reduced by visual assessment. The estimated ejection fraction is 40-45%. Mild diffuse hypokinesis. Regional wall motion abnormalities: Hypokinesis of the basal-midinferolateral myocardium. Hypokinesis of the anterolateral myocardium. Doppler parameters are consistent with abnormal left ventricular relaxation (grade 1 diastolic dysfunction). Right ventricle: The cavity size is mildly dilated. The moderator band is in a normal position. Systolic function is low normal. Left atrium: The atrium is mildly dilated. Right atrium: The atrium is mildly dilated. Mitral valve: The leaflets are mildly thickened. There is no evidence of stenosis. There is moderate regurgitation. Aortic valve: The valve is trileaflet. The leaflets are mildly thickened. Thickening, consistent with sclerosis. There is no evidence of stenosis. There is no significant regurgitation. Tricuspid valve: The leaflets are normal thickness. There is no evidence of stenosis. There is trace to mild regurgitation. Pulmonic valve: The leaflets are normal thickness. There is no evidence of stenosis. There is trivial regurgitation. Aorta: Aortic root: The aortic root is upper normal in size. Ascending aorta: The ascending aorta is mildly dilated. Aortic arch: The aortic arch is appears normal. Pericardium: A prominent pericardial fat pad is present. There is no significant pericardial effusion. Pulmonary arteries: The main pulmonary artery is normal-sized. Systemic veins: Inferior vena cava: The vessel is normal in size. The respirophasic diameter changes are in the normal range (>= 50%). Measurements Left ventricle Value Ref Aortic valve continued Value Ref OLAMIDE, LAX 5.3 cm 4.2 - 5.8 Peak v, S 1.26 m/sec ----- ESD, LAX (H) 4.8 cm 2.5 - 4.0 VTI, S 25.3 cm ----- FS, LAX (L) 9 % 25 43 Mean grad, S 4.0 mm Hg ----- PW, ED, LAX (H) 1.4 cm 0.6 - 1.0 Peak grad, S 6.0 mm Hg ----- FS (L) 9 % 25 - 43 LVOT/AV, VTI ratio 0.67 ----- PW, ED (H) 1.4 cm 0.6 - 1.0 STU, VTI 2.11 cm^2 ----- E', lat lakesha, TDI (L) 2.8 cm/sec >=10.0 STU, Vmax 2.08 cm^2 - ---- E/e', lat lakesha, 17 TDI Mitral valve Value Ref E', med lakesha, TDI (L) 2.9 cm/sec >=7.0 Peak E 0.48 m/sec - ---- E/e', med lakesha, 17 Peak A 1.1 m/sec ---- - TDI Decel time 285 ms ----- E', avg, TDI 2.9 cm/sec Peak E/A ratio 0.4 ---- - E/e', avg, TDI (H) 17 <=14 MR alias velocity 0.39 m/sec - ---- Regurg VTI 151.0 cm ----- LVOT Value Ref ERO, PISA 0.19 cm^2 ----- Diam, S 2.00 cm MR vol, PISA 20 ml ----- Area 3.1 cm^2 MR fraction, PISA 27 % ----- Peak sherita, S 0.84 m/sec VTI, S 17.0 cm Pulmonic valve Value Ref Mean grad, S 1 mm Hg Peak v, S 0.78 m/sec ----- SV 54 ml Peak grad, S 2.0 mm Hg ----- SV/bsa 26 ml/m^2 Tricuspid valve Value Ref Ventricular septum Value Ref TR peak v 2.1 m/sec <=2.8 IVS, ED (H) 1.3 cm 0.6 - 1.0 Peak RV-RA grad, S 18 mm Hg ----- Max TR sherita 2.1 m/sec ----- Right ventricle Value Ref OLAMIDE, LAX 3.7 cm Aortic root Value Ref OLAMIDE minor ax, A4C (H) 5.0 cm 1.9 - 3.5 Root diam 3.6 cm <4.2 mid Pressure, S 21 mm Hg Ascending aorta Value Ref AAo AP diam, S 3.7 cm ----- Left atrium Value Ref AP dim, ES (H) 4.50 cm 3.00 - Aortic arch Value Ref 4.00 Arch diam 2.0 cm ----- ML dim, A4C 5.3 cm SI dim, A4C 6.4 cm Decending aorta Value Ref Vol/bsa, ES, 1-p 30 ml/m^2 12 - 37 Kenney peak sherita 0.81 m/sec ----- A4C Vol/bsa, ES, A/L 32 ml/m^2 16 - 34 Pulmonary artery Value Ref Pressure, S 19.0 mm Hg ----- Right atrium Value Ref SI dim, ES (H) 6.1 cm 3.4 - 5.3 Inferior vena cava Value Ref ML dim, ES, A4C 4.2 cm 2.6 - 4.4 Diam 1.9 cm ----- SI dim, ES, A4C (H) 6.1 cm 3.4 - 5.3 Estimated RAP 3 mm Hg Aortic valve Value Ref Lakesha diam, ED 2.3 cm Legend: (L) and (H) kenneth values outside specified reference range. Prepared and electronically signed by John Eduardo MD 04/21/2019 13:26
--- NOTE | 2019-04-21 17:39 | TRS ---
CC: Primary Care Provider; Dr. Eduardo; Dr. Espazra, [facility] * TRANSFER SUMMARY: [place] [facility] DATE OF ANTICIPATED TRANSFER: 04/22/19 DISPOSITION AT TRANSFER: The patient is going to be transferred to [facility] for evaluation for coronary artery bypass grafting due to non- ST elevation [place] with left main disease. TRANSFER DIAGNOSIS: Non ST elevation myocardial infarction with left main disease documented during cardiac catheterization by Dr. Eduardo on 04/21/19. SECONDARY DIAGNOSES: 1. History of coronary artery disease, status post circumflex artery stenting 6 months prior. 2. History of diabetes. 3. Hypertension. 4. Glaucoma. 5. History of left knee replacement. MEDICATIONS: Medications at the time of transfer include: 1. Acetaminophen on p.r.n. basis. 2. Aspirin 81 mg a day. 3. Lipitor 20 mg daily. 4. Clonidine 0.3 mg b.i.d. 5. Heparin drip continuously. 6. Insulin regular sliding scale. 7. Metoprolol succinate 100 mg daily. 8. Timolol 1 drop to both eyes daily. 9. Xalatan 1 drop to both eyes q.p.m. CONSULTATIONS DURING THE HOSPITAL STAY: Included Dr. Eduardo from Cardiology. PROCEDURES PERFORMED: Included cardiac catheterization from right radial approach, performed by Dr. Eduardo on 04/21/19. The official report is still pending, but the verbal report I received by Dr. Eduardo, it showed the left main coronary artery disease would need likely bypass. LABORATORY DATA: On 04/21/19 showed sodium of 136, potassium 3.8, chloride 100 , carbon dioxide 22, anion gap of 14, BUN 22, creatinine 1.58. Troponin was last recorded at 36.6. Hemoglobin A1c was 6.9 recorded on 04/21/19. Liver function tests were unremarkable on admission, approximately mildly elevated bilirubin at 1.1. LDL cholesterol 33, cholesterol total of 112, HDL was 34.3. Brain natriuretic peptide was at 1045 documented on 04/21/19. EKG shows left bundle branch block, which is the patient's baseline. Transthoracic echocardiogram obtained on 04/21/19, showed an EF 45% to 50% with hypokinesis of the basal and mid inferolateral myocardium and hypokinesis of the anterolateral myocardium. There was moderate concern of LVH. The right ventricle function was normal. The mitral valve had moderate regurgitation and tricuspid valve had mild regurgitation. Aortic valve had no evidence of stenosis. Compared to studies from September 2016, the hypokinesis was new and degree of mitral regurgitation was worse. Portable chest x-ray obtained on admission. Impression: "There has been interval element of mixed pattern of his additional airspace disease. 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 The patient's initial troponin was 0.4, second troponin 36. The patient went to cardiac labels molder with Dr. Eduardo in the morning of 04/21/19, which showed left main disease. Dr. Eduardo discussed the case with Dr. Esparza from [facility] and arranged for the patient to be transferred to [facility] in the morning on 04/22/19. The patient's heparin drip is going to be continued throughout the transfer and the patient's Plavix was held throughout his hospital stay. PHYSICAL EXAM AT TIME OF THIS DICTATION: General: An 83-year-old male who is in no acute distress. Alert and oriented x3. Vital Signs: Blood pressure 110/ 68, heart rate of 50 and regular, respiratory rate 14, oxygen saturation 98% on 2 L of oxygen nasal cannula. HEENT: Head, atraumatic, normocephalic. Eyes: Pupils equal, round, reactive to light and accommodation. Oropharynx clear. Mucosa moist. Neck: Supple. No JVD. No bruits bilaterally. Cardiovascular: Regular rate and rhythm. No murmur. Respiratory: Clear to auscultation bilaterally. Abdomen: Soft, nontender. Bowel sounds are present in 4 quadrants. Extremities: There is no edema. Pulses are +2 bilaterally. There is no clubbing or cyanosis. Neuro Evaluation: Speech is clear. Cranial nerves II through XII are grossly intact. Motor strength is 5/5 bilaterally. Skin Evaluation: The right radial access point for cardiac catheterization showed no evidence of hematoma. Please note that this is a short summary of the patient's hospital stay and please refer to further medical records for details. DISPOSITION AT DISCHARGE: Transfer to [facility]. CONDITION AT DISCHARGE: Stable. TIME SPENT: Approximately 55 minutes was spent on transfer of this patient. [id number]/[facility] #: [id number] [facility]
[2019-04-21] MEDS ORDERED: Atorvastatin* 20 MG TAB PO SCH (18:00)
[2019-04-21] MEDS ORDERED: Latanoprost 0.005%* 2.5 ml BTL BOTH EYES SCH (18:00)
[2019-04-21] MEDS ORDERED: Dextrose 50% Syringe 50 ML* 25 GM/50 ML SYRINGE IV PUSH PRN (20:14)
--- NOTE | 2019-04-21 20:41 | CATH ---
CC: Dr. Low Mendoza; Dr. Vitaliy Esparza, [facility]; Formerly [facility] [place] * CARDIAC CATHETERIZATION: DATE OF PROCEDURE: 04/21/19 - ROOM #ICU-03 PROCEDURE: Cardiac catheterization including coronary angiography. INDICATIONS: NSTEMI, coronary artery disease. The patient is an 83-year-old gentleman with a history of coronary artery disease, history of stenting to his left circumflex artery in July of 2018. This was done at [place]. He had a 3.5 x 18 mm stent placed. The patient came to the hospital with an acute coronary syndrome. The patient's troponin level was 30. Cardiac catheterization was recommended. DESCRIPTION OF PROCEDURE: The patient was brought to the cardiac catheterization lab in a fasting state. Informed consent had been obtained prior to the procedure. All labs were reviewed. The patient was placed supine on the procedure table. His right radial area was prepped and draped in the usual fashion. 1% lidocaine was used for local anesthesia. Under ultrasound guidance, the radial artery was entered by a Seldinger technique and a guidewire was placed. Over the guidewire, a 6-Greek sheath introducer was placed. The patient underwent coronary angiography using a 6-Greek TIG catheter and a 6-Greek JL 3.5 catheter. At the end of the procedure, all sheaths and catheters were removed. The patient tolerated the procedure well, no complications. A total of 80 cc of Visipaque dye was used; a total of 3.7 minutes of fluoro time was used. FINDINGS: 1. Left main. The left main was normal in size. It bifurcated into the LAD and circumflex. The ostium of the left main had an eccentric 80% stenosis. There was mild calcification throughout the left main. 2. Left anterior descending artery. The LAD was normal in size. It gave off 2 diagonal branches. There was [id number] disease throughout the LAD with mild calcification in the proximal vessel. The first diagonal vessel had moderate disease throughout the diagonal vessel. There was a branch vessel off the first diagonal that had an ostial 70% stenosis. The D2 vessel was without disease. 3. Left circumflex artery. The left circumflex artery was normal in size. It gave off 1 large obtuse marginal branch. The proximal portion of the left circumflex was without disease. The mid portion into the first obtuse marginal had a stent placed. The stent was open and patent. The distal portion of the stent into the first [place] artery had an eccentric 80% stenosis. The remainder of the vessel had mild disease. 4. Right coronary artery. The RCA was occluded at its proximal vessel. There was left to right collaterals to the PDA and posterolateral branches from the LAD. The size of the PDA is at least a 2 mm vessel. IMPRESSION: 1. Critical disease of the ostium of the left main with an 80% eccentric stenosis. 2. Stent to the left circumflex artery was open and patent with a critical stenosis to the distal portion into the [place] artery with an 80% stenosis. 3. Mild disease to the LAD. 4. Occluded right coronary artery with left to right collaterals. RECOMMENDATION: The patient will be evaluated at [facility] for bypass surgery given his 3-vessel disease and left main disease. [id number] #: [id number] HANG
[2019-04-21] MEDS: cloNIDine TAB* 0.1 MG PO SCH (20:49)
[2019-04-21] MEDS ORDERED: Insulin LISPRO* 1 UNITS UNIT SUBCUT SCH (21:00)
[2019-04-21] MEDS ORDERED: Magnesium Hydroxide LIQ* 30 ML UDC PO PRN (21:02)
[2019-04-21] MEDS ORDERED: Polyethylene Glycol 3350* 17 GM PACKET PO PRN (21:02)
[2019-04-22 02:35] LABS: ABS Basophils 0.1 10^3/ul (0-0.2); ABS Eosinophils 0.1 10^3/ul (0-0.6); ABS Lymphocytes 1.9 10^3/ul (1.0-4.8); ABS Monocytes 0.7 10^3/ul (0-0.8); ABS Neutrophils 9.6 10^3/ul (1.5-7.7); Eosinophil % 0.6 %; Hematocrit 39 % (42-52); Hemoglobin 12.9 g/dL (14.0-18.0); Lymphocyte % 15.5 %; Mean Corpuscular HGB Conc 33 g/dL (31-36); Mean Corpuscular Hemoglobin 30 pg (27-31); Mean Corpuscular Volume 89 fL (80-94); Mean Platelet Volume 8.7 fL (7.4-10.4); Platelet Count 202 10^3/uL (150-450); Red Blood Count 4.36 10^6 /uL (4.18-5.48); Red Cell Distribution Width 14 % (10-15); White Blood Count 12.3 10^3/uL (3.5-10.8)
[2019-04-22 02:51] LABS: BUN/Creatinine Ratio 15.2 (8-20); EGFR Non-African American 39.9 (>60); Potassium 3.7 mmol/L (3.5-5.0)
[2019-04-22 02:52] LABS: Albumin 3.3 g/dL (3.2-5.2); Albumin/Globulin Ratio 1.4 (1-3); Calcium 8.6 mg/dL (8.6-10.3); EGFR African American 48.3 (>60); Globulin 2.3 g/dL (2-4); Total Protein 5.6 g/dL (6.4-8.9)
[2019-04-22] MEDS ORDERED: Morphine INJ* 2 MG/ML 1 ML SYRINGE (TWO MG - NEW SYRINGE VERSION) IV PRN (04:35)
[2019-04-22] MEDS ORDERED: Nitro 2% OINT* (Nitroglycerin) 1 INCH/PAK PAK TOPICAL ONE (04:35)
[2019-04-22] MEDS ORDERED: Nitro 2% OINT* (Nitroglycerin) 1 INCH/PAK PAK ONE (04:38)
[2019-04-22] MEDS ORDERED: Morphine INJ* 2 MG/ML 1 ML SYRINGE (TWO MG - NEW SYRINGE VERSION) ONE (04:38)
[2019-04-22] MEDS: Metoprolol Succinate XL TAB* 100 MG PO SCH (05:17)
[2019-04-22] MEDS ORDERED: Metoprolol Succinate XL TAB* 100 MG PO SCH (05:30)
[2019-04-22] MEDS ORDERED: Morphine INJ* 2 MG/ML 1 ML SYRINGE (TWO MG - NEW SYRINGE VERSION) IV ONE (06:52)
[2019-04-22] MEDS: Nitroglycerin TAB 0.4 MG* 0.4 MG TAB SL PRN ×2 (07:02→07:14)
[2019-04-22] MEDS: cloNIDine TAB* 0.1 MG PO SCH (07:31)
[2019-04-22] MEDS: Timolol 0.5% OPTH.SOL* BTL BOTH EYES SCH (07:32)
[2019-04-22] MEDS: Aspirin EC TAB* 81 MG TAB.EC PO SCH (07:32)
--- NOTE | 2019-04-22 07:54 | PN ---
Subjective Date of Service: 04/22/19 Interval History: Pt ia about ready for transfer. Had episodes of chest pressure overnight and received morphine and nitro SL . States that whenever he does any exertion-for example using the urinal he gets substernal chest pressure, currently rates the pressure at 0. Breathing is "OK" Objective Active Medications: Acetaminophen (Tylenol Tab*) 650 mg PO Q4H PRN PRN Reason: DISCOMFORT Aspirin (Aspirin Ec Tab*) 81 mg PO DAILY REPLACED BY [facility] Last Admin: 04/22/19 07:32 Dose: 81 mg Atorvastatin Calcium (Lipitor*) 20 mg PO QPM HELLEN Last Admin: 04/21/19 18:40 Dose: 20 mg Clonidine HCl (Catapres Tab*) 0.3 mg PO BID REPLACED BY [facility] Last Admin: 04/22/19 07:31 Dose: 0.3 mg Dextrose (D50w Syringe 50 Ml*) 12.5 gm IV PUSH .FOR FS < 60 - SS PRN PRN Reason: FS < 60 Heparin Sodium (Porcine) (Heparin Vial(*)) 0 units IV .PER PROTOCOL REPLACED BY [facility] Heparin Sodium/Dextrose (Heparin Drip 25,000 Units(*)) 25,000 units in 500 mls @ 0 mls/hr IV PER RATE REPLACED BY [facility]; Protocol Last Admin: 04/21/19 23:40 Dose: 23 mls/hr Insulin Human Lispro (Humalog*) 0 units SUBCUT AC REPLACED BY [facility]; Protocol Last Admin: 04/21/19 21:03 Dose: Not Given Latanoprost (Xalatan 0.005%*) 1 drop BOTH EYES QPM REPLACED BY [facility] Last Admin: 04/21/19 18:39 Dose: 1 drop Magnesium Hydroxide (Milk Of Magnesia Liq*) 30 ml PO Q6H PRN PRN Reason: CONSTIPATION Metoprolol Succinate (Toprol Xl Tab*) 100 mg PO 0900 REPLACED BY [facility] Last Admin: 04/22/19 05:24 Dose: Not Given Morphine Sulfate (Morphine Inj (Syringe))*) 2 mg IV Q4H PRN PRN Reason: PAIN - MILD Nitroglycerin (Nitroglycerin Tab 0.4 Mg*) 0.4 mg SL Q5M PRN PRN Reason: ANGINA Last Admin: 04/22/19 07:14 Dose: 0.4 mg Pharmacy Profile Note (Nitro Patch/Oint Remove*) 1 note TOPICAL ONCE ONE Stop: 04/22/19 10:31 Polyethylene Glycol/Electrolytes (Miralax*) 17 gm PO DAILY PRN PRN Reason: CONSTIPATION Last Admin: 04/21/19 21:50 Dose: 17 gm Timolol Maleate (Timoptic 0.5% Opth*) 1 drop BOTH EYES DAILY HELLEN Last Admin: 04/22/19 07:32 Dose: 1 drop Vital Signs - 8 hr 04/22/19 04/22/19 04/22/19 00:00 00:08 01:00 Temperature Pulse Rate 56 56 71 Respiratory 12 0 15 Rate Blood Pressure 132/70 (mmHg) O2 Sat by Pulse 93 97 96 Oximetry 04/22/19 04/22/19 04/22/19 01:01 02:00 02:02 Temperature Pulse Rate 72 62 73 Respiratory 11 13 20 Rate Blood Pressure 120/62 157/87 (mmHg) O2 Sat by Pulse 97 94 95 Oximetry 04/22/19 04/22/19 04/22/19 03:00 03:11 03:19 Temperature 97.1 F Pulse Rate 63 71 Respiratory 14 19 Rate Blood Pressure 183/97 (mmHg) O2 Sat by Pulse 95 96 Oximetry 04/22/19 04/22/19 04/22/19 03:30 03:34 04:00 Temperature Pulse Rate 70 66 65 Respiratory 22 21 16 Rate Blood Pressure 174/93 159/81 169/98 (mmHg) O2 Sat by Pulse 95 95 94 Oximetry 04/22/19 04/22/19 04/22/19 04:20 04:30 04:40 Temperature Pulse Rate 76 75 71 Respiratory 22 24 20 Rate Blood Pressure (mmHg) O2 Sat by Pulse 92 91 94 Oximetry 04/22/19 04/22/19 04/22/19 04:44 04:50 04:55 Temperature Pulse Rate 63 64 Respiratory 20 21 19 Rate Blood Pressure 177/90 (mmHg) O2 Sat by Pulse 94 95 Oximetry 04/22/19 04/22/19 04/22/19 04:59 05:00 05:01 Temperature Pulse Rate 66 65 Respiratory 21 17 20 Rate Blood Pressure 185/81 (mmHg) O2 Sat by Pulse 99 98 Oximetry 04/22/19 04/22/19 04/22/19 05:11 05:15 05:30 Temperature Pulse Rate 63 62 64 Respiratory 19 18 18 Rate Blood Pressure 171/78 (mmHg) O2 Sat by Pulse 97 97 97 Oximetry 04/22/19 04/22/19 04/22/19 05:31 05:45 05:46 Temperature Pulse Rate 64 64 64 Respiratory 17 19 19 Rate Blood Pressure 176/71 169/68 (mmHg) O2 Sat by Pulse 98 98 97 Oximetry 04/22/19 04/22/19 04/22/19 06:00 06:01 06:05 Temperature Pulse Rate 63 63 61 Respiratory 9 12 16 Rate Blood Pressure 170/91 (mmHg) O2 Sat by Pulse 96 96 96 Oximetry 04/22/19 04/22/19 04/22/19 06:10 06:15 06:16 Temperature Pulse Rate 59 59 59 Respiratory 13 13 14 Rate Blood Pressure 145/80 (mmHg) O2 Sat by Pulse 97 98 97 Oximetry 04/22/19 04/22/19 04/22/19 06:20 06:25 06:30 Temperature Pulse Rate 60 63 59 Respiratory 10 20 10 Rate Blood Pressure (mmHg) O2 Sat by Pulse 98 96 96 Oximetry 04/22/19 04/22/19 04/22/19 06:31 06:35 06:40 Temperature Pulse Rate 62 64 69 Respiratory 7 15 19 Rate Blood Pressure 168/86 (mmHg) O2 Sat by Pulse 97 96 97 Oximetry 04/22/19 04/22/19 04/22/19 06:45 06:50 06:55 Temperature Pulse Rate 68 67 65 Respiratory 17 18 12 Rate Blood Pressure 177/88 (mmHg) O2 Sat by Pulse 97 96 96 Oximetry 04/22/19 04/22/19 04/22/19 06:56 07:00 07:05 Temperature Pulse Rate 67 66 Respiratory 27 12 17 Rate Blood Pressure 175/94 (mmHg) O2 Sat by Pulse 95 96 Oximetry 04/22/19 04/22/19 04/22/19 07:06 07:10 07:15 Temperature Pulse Rate 71 73 68 Respiratory 15 19 21 Rate Blood Pressure 167/80 141/95 (mmHg) O2 Sat by Pulse 95 93 95 Oximetry 04/22/19 07:34 Temperature Pulse Rate Respiratory 18 Rate Blood Pressure (mmHg) O2 Sat by Pulse Oximetry Oxygen Devices in Use Now: Nasal Cannula Appearance: 83 yo M in nAD, aAOx3 Eyes: No Scleral Icterus, PERRLA Ears/Nose/Mouth/Throat: NL Teeth, Lips, Gums, Mucous Membranes Moist Neck: NL Appearance and Movements; NL JVP, Trachea Midline Respiratory: Symmetrical Chest Expansion and Respiratory Effort, - - crackles at bases Cardiovascular: - - 2/6 systolic murmur at apex Abdominal: NL Sounds; No Tenderness; No Distention, No Hepatosplenomegaly Lymphatic: No Cervical Adenopathy Extremities: No Edema Skin: No Nodules or Sclerosis Neurological: Alert and Oriented x 3, NL Muscle Strength and Tone Result Diagrams: 04/22/19 02:20 04/22/19 02:20 Microbiology and Other Data: Microbiology 04/21/19 02:20 Nasal Screen MRSA (PCR) - Final Nasal Mrsa Not Detected Assess/Plan/Problems-Billing Assessment: 83 yo M with left main CAD, NSTEMI planned for transfer this AM - Patient Problems (1) NSTEMI (non-ST elevated myocardial infarction) Comment: pt continues to be in LBBB on telem. Has had episodes of substernal pressure with minimal exertion. Cont ASA, clonidine, lopressor, heparin gtt. Planned for transfer to [facility] for CABG this AM (2) Leukocytosis Comment: likely stress related, improving (3) Acute renal failure Comment: creat slightly worse today after cath likely due to a combination of decreased perfusion and contrast dye (4) CKD (chronic kidney disease), stage II Comment: creat baseline 1.2 (5) Hypertension Comment: uncontrolled, SBP >170, just given lopressor and clonidine Status and Disposition: transfer
[2019-04-22 07:57] VITALS: BP 186/71
[2019-04-22] MEDS ORDERED: nitroGLYCERIN DRIP* 25,000 MCG/250 ML BTL IV SCH (09:00)
[2019-04-22] MEDS ORDERED: Nitro Patch/OINT Remove TOPICAL ONE (10:30)
== END 2019-04-22 08:40 | disposition short-term general hospital (02) ==
LOC: ED 23:46 → INTOOBSV 04-21 01:29 → ICU 04-21 01:29 → UNDOADMIN 04-21 01:29
PROVIDERS: ADMIT Specialist; ATTEND Internal Medicine
DX: I21.4 Non-ST elevation (NSTEMI) myocardial infarction (principal); I25.10 Atherosclerotic heart disease of native coronary artery without angina pectoris; R07.9 Chest pain, unspecified; H40.9 Unspecified glaucoma; Z96.652 Presence of left artificial knee joint; Z79.82 Long term (current) use of aspirin; I12.9 Hypertensive chronic kidney disease with stage 1 through stage 4 chronic kidney disease, or unspecified chronic kidney disease; E11.22 Type 2 diabetes mellitus with diabetic chronic kidney disease; N18.2 Chronic kidney disease, stage 2 (mild); N40.0 Benign prostatic hyperplasia without lower urinary tract symptoms; J30.9 Allergic rhinitis, unspecified; E78.5 Hyperlipidemia, unspecified; Z95.5 Presence of coronary angioplasty implant and graft; M48.07 Spinal stenosis, lumbosacral region
CPT/HCPCS: 36415; 71045; 80053; 80061; 81003; 81015; 83036; 83735; 83880; 84484; 84520; 85025; 85610; 85730; 87641; 93005; 93306; 93458; 99156; 99157; 99285; A9270-GY; G0378; J0461; J1644; J1940; J2250; J2270; J2405; J3010; J3490